=== PATIENT | female | born 1940 | race Caucasian/White ===

== ENCOUNTER → 2016-09-03 | Outpatient (CLI) | payer MEDICARE ==
--- NOTE | 2016-09-03 17:22 | US ---
EXAMINATION TYPE: US thyroid st tissue head/neck DATE OF EXAM: 09/03/2016 4:57 PM COMPARISON: NONE CLINICAL HISTORY: R22.1 SWELLING, MASS AND LUMP NECK. GLAND SIZE: Right Lobe: 3.5 x 1.1 x 1.8 cm Overall Parenchyma: heterogenous Left Lobe: 3.2 x 1.5 x 1.4 cm Overall Parenchyma: heterogeneous Isthmus Thickness: 0.3 cm NODULES RIGHT: # of nodules measured on right: 0 LEFT: # of nodules measured on left: 0 ISTHMUS: # of nodules measured in the isthmus: 0 Bilateral neck scanned, no evidence of lymphadenopathy. Thyroid was scanned as patient's area of concern is just inferior to thyroid where there is a localis ed area of swelling. The order is for lump/ mass on neck. After scanning thyroid, the area of concern mid lower neck, inferior to thyroid was scanned, with no definite abnormality noted. IMPRESSION: Normal thyroid sonogram. We did not demonstrate any sonographic abnormality in the patient's area of concern which was inferior to the thyroid gland.
== END | disposition home or self-care (01) ==
LOC: RADUSWWP 16:37
PROVIDERS: ATTEND Family Medicine
DX: R22.1 Localized swelling, mass and lump, neck (principal)
CPT/HCPCS: 76536

== ENCOUNTER 2017-07-10 12:44 | Inpatient (IN) | payer MEDICARE ==
[2017-07-10 13:16] LABS: Glucose,Whole Blood 168 mg/dL (75-99)
[2017-07-10] MEDS ORDERED: RX INFO: IV CONTRAST WAS GIVEN 1 EACH MISC MISCELLANE PRN (13:34)
[2017-07-10] MEDS ORDERED: SODIUM CHLORIDE 0.9% 1,000 ML IV STA (13:34)
--- NOTE | 2017-07-10 13:38 | ED ---
General Adult HPI - General Chief complaint: Neuro Symptoms/Deficit Stated complaint: Right-sided weakness Time Seen by Provider: 07/10/17 13:15 Source: patient, family, RN notes reviewed Mode of arrival: wheelchair Limitations: no limitations - History of Present Illness Initial comments: Patient is a pleasant 76-year-old female presenting to the emergency department with concerns for right-sided weakness. Onset was around 3:30 this morning when she woke up. Patient had difficulty walking and did lean towards the right side. Patient also noticed weakness of her right arm. Patient does have a history of migraine headaches. Patient did have a moderate headache earlier however is essentially resolved at this point. No confusion. Daughter states she did notice some slurred speech. No visualized facial weakness. Symptoms do seem to have improved since onset. - Related Data Home Medications Medication Instructions Recorded Confirmed Atenolol [Tenormin] 25 mg PO QAM 03/02/14 07/10/17 Hydrochlorothiazide 25 mg PO QAM 03/02/14 07/10/17 Multivitamin/Iron/Folic Acid 1 tab PO BID 03/02/14 07/10/17 [Centrum Complete Multivit Tab] Naproxen 500 mg PO HS 03/02/14 07/10/17 Omeprazole [PriLOSEC] 20 mg PO QAM 03/02/14 07/10/17 glipiZIDE [Glucotrol] 5 mg PO HS 03/02/14 07/10/17 metFORMIN HCL 1,000 mg PO BID 03/02/14 07/10/17 Aspirin 81 mg PO HS 11/14/14 07/10/17 Calcium Carbonate 500 mg PO QAM 07/10/17 07/10/17 Fiberwell 5g 5 g PO QAM 07/10/17 07/10/17 Folic Acid 1 mg PO QAM 07/10/17 07/10/17 Garcinia Cambogia 1 tab PO QAM 07/10/17 07/10/17 L.acidoph,Paracasei, B.lactis 1 cap PO QAM 07/10/17 07/10/17 [Probiotic] Magnesium 200 mg PO HS 07/10/17 07/10/17 Methotrexate Sodium [Methotrexate] 2.5 mg PO HS 07/10/17 07/10/17 Metoprolol Succinate (ER) [Toprol 25 mg PO QAM 07/10/17 07/10/17 Xl] Pravastatin Sodium [Pravachol] 40 mg PO HS 07/10/17 07/10/17 Turmeric Root Extract [Turmeric] 500 mg PO QAM 07/10/17 07/10/17 Vits A,C,E/Lutein/Minerals 1 tab PO HS 07/10/17 07/10/17 [Ocuvite with Lutein Tablet] amLODIPine BES/OLMESARTAN MED 1 tab PO HS 07/10/17 07/10/17 [amLODIPine BES/OLMESARTAN MED 5-40 mg] Allergies Allergy/AdvReac Type Severity Reaction Status Date / Time Sulfa (Sulfonamide Allergy tongue Verified 07/10/17 14:12 Antibiotics) swelling Review of Systems ROS Statement: Those systems with pertinent positive or pertinent negative responses have been documented in the HPI. ROS Other: All systems not noted in ROS Statement are negative. Constitutional: Denies: fever Eyes: Denies: eye pain ENT: Denies: ear pain Respiratory: Denies: cough Cardiovascular: Denies: chest pain Endocrine: Denies: fatigue Gastrointestinal: Denies: abdominal pain Genitourinary: Denies: dysuria Musculoskeletal: Denies: back pain Skin: Denies: rash Neurological: Reports: weakness, abnormal gait. 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, diverticulitis History of Any Multi-Drug Resistant Organisms: None Reported Past Surgical History: Cholecystectomy, Joint Replacement, Tonsillectomy Additional Past Surgical History / Comment(s): breast biopsy rt breast, lt knee replacement Past Anesthesia/Blood Transfusion Reactions: Motion Sickness Past Psychological History: No Psychological Hx Reported Smoking Status: Never smoker Past Alcohol Use History: None Reported Past Drug Use History: None Reported - Past Family History Mother Family Medical History: No Reported History General Exam Limitations: no limitations General appearance: alert, in no apparent distress Head exam: Present: atraumatic Eye exam: Present: normal appearance, PERRL, EOMI. Absent: nystagmus ENT exam: Present: normal oropharynx Neck exam: Present: normal inspection Respiratory exam: Present: normal lung sounds bilaterally Cardiovascular Exam: Present: regular rate, normal rhythm GI/Abdominal exam: Present: soft. Absent: tenderness Extremities exam: Present: normal inspection Neurological exam: Present: alert, oriented X3, CN II-XII intact Expanded Neurological exam: Present: protecting the airway Patient oriented to: Present: person, place, time Speech: Present: fluid speech Cranial nerves: EOM's Intact: Normal, Facial Sensation: Normal Cerebellar function: Finger to Nose: Abnormal Right Sensory exam: Upper Extremity Light Touch: Abnormal Right (Slight decreased sensation on the right), Lower Extremity Light Touch: Normal Motor strength exam: RUE: 4, LUE: 5, RLE: 4, LLE: 5 Eye Response: (4) open spontaneously Motor Response: (6) obeys commands Verbal Response: (5) oriented Psychiatric exam: Present: normal affect, normal mood Skin exam: Present: normal color Course Vital Signs 07/10/17 07/10/17 07/10/17 12:45 14:15 15:28 Temperature 97.8 F 98.9 F Pulse Rate 71 82 60 Respiratory 18 18 20 Rate Blood Pressure 186/76 160/74 166/70 O2 Sat by Pulse 99 98 98 Oximetry EKG Findings - EKG Comments: EKG Findings:: Normal sinus rhythm 63. IL 176. QRS 150. QT 452. QTC 462. Normal axis. Right bundle branch block. No acute ST change. Medical Decision Making - Medical Decision Making Patient reevaluated and is now symptom-free. No weakness on exam of the extremities. Patient and family were updated on results and plan. Case was discussed in detail with Dr. Florence, covering for Dr. kamara, who will admit for Dr. Palma. - Lab Data Result diagrams: 07/10/17 14:00 07/10/17 14:00 Lab Results 07/10/17 07/10/17 07/10/17 Range/Units 13:08 14:00 14:00 WBC 6.0 (3.8-10.6) k/uL RBC 4.14 (3.80-5.40) m/uL Hgb 12.7 (11.4-16.0) gm/dL Hct 39.3 (34.0-46.0) % MCV 94.9 (80.0-100.0) fL MCH 30.6 (25.0-35.0) pg MCHC 32.3 (31.0-37.0) g/dL RDW 13.7 (11.5-15.5) % Plt Count 223 (150-450) k/uL Neutrophils % 65 % Lymphocytes % 24 % Monocytes % 7 % Eosinophils % 2 % Basophils % 1 % Neutrophils # 3.9 (1.3-7.7) k/uL Lymphocytes # 1.4 (1.0-4.8) k/uL Monocytes # 0.4 (0-1.0) k/uL Eosinophils # 0.1 (0-0.7) k/uL Basophils # 0.0 (0-0.2) k/uL PT (9.0-12.0) sec INR (<1.2) APTT (22.0-30.0) sec Sodium (137-145) mmol/L Potassium (3.5-5.1) mmol/L Chloride (98-107) mmol/L Carbon Dioxide (22-30) mmol/L Anion Gap mmol/L BUN (7-17) mg/dL Creatinine (0.52-1.04) mg/dL Est GFR (MDRD) Af Amer (>60 ml/min/1.73 sqM) Est GFR (MDRD) Non-Af (>60 ml/min/1.73 sqM) Glucose (74-99) mg/dL POC Glucose (mg/dL) 168 H (75-99) mg/dL POC Glu Straightening Machine Operator ID Shawn Ventura Calcium (8.4-10.2) mg/dL Total Bilirubin (0.2-1.3) mg/dL AST (14-36) U/L ALT (9-52) U/L Alkaline Phosphatase (38-126) U/L Total Creatine Kinase 38 (30-135) U/L CK-MB (CK-2) 0.5 (0.0-2.4) ng/mL CK-MB (CK-2) Rel Index 1.3 Troponin I <0.012 (0.000-0.034) ng/mL Total Protein (6.3-8.2) g/dL Albumin (3.5-5.0) g/dL 07/10/17 07/10/17 Range/Units 14:00 14:00 WBC (3.8-10.6) k/uL RBC (3.80-5.40) m/uL Hgb (11.4-16.0) gm/dL Hct (34.0-46.0) % MCV (80.0-100.0) fL MCH (25.0-35.0) pg MCHC (31.0-37.0) g/dL RDW (11.5-15.5) % Plt Count (150-450) k/uL Neutrophils % % Lymphocytes % % Monocytes % % Eosinophils % % Basophils % % Neutrophils # (1.3-7.7) k/uL Lymphocytes # (1.0-4.8) k/uL Monocytes # (0-1.0) k/uL Eosinophils # (0-0.7) k/uL Basophils # (0-0.2) k/uL PT 10.1 (9.0-12.0) sec INR 1.0 (<1.2) APTT 22.1 (22.0-30.0) sec Sodium 139 (137-145) mmol/L Potassium 4.3 (3.5-5.1) mmol/L Chloride 98 (98-107) mmol/L Carbon Dioxide 29 (22-30) mmol/L Anion Gap 12 mmol/L BUN 22 H (7-17) mg/dL Creatinine 0.80 (0.52-1.04) mg/dL Est GFR (MDRD) Af Amer >60 (>60 ml/min/1.73 sqM) Est GFR (MDRD) Non-Af >60 (>60 ml/min/1.73 sqM) Glucose 154 H (74-99) mg/dL POC Glucose (mg/dL) (75-99) mg/dL POC Glu Straightening Machine Operator ID Calcium 10.0 (8.4-10.2) mg/dL Total Bilirubin 0.4 (0.2-1.3) mg/dL AST 20 (14-36) U/L ALT 18 (9-52) U/L Alkaline Phosphatase 90 (38-126) U/L Total Creatine Kinase (30-135) U/L CK-MB (CK-2) (0.0-2.4) ng/mL CK-MB (CK-2) Rel Index Troponin I (0.000-0.034) ng/mL Total Protein 7.0 (6.3-8.2) g/dL Albumin 4.1 (3.5-5.0) g/dL - Radiology Data Radiology results: report reviewed (Computed tomography scan of the brain reveals no acute abnormality. Chronic small vessel ischemia. CT angios without acute process. Age-related changes.), image reviewed (Two-view chest x- ray shows no acute cardiopulmonary process.) Disposition Clinical Impression: Transient cerebral ischemia Disposition: ADMITTED IP TO THIS HOSP Referrals: Kostas Kim MD [Primary Care Provider] - 1-2 days Decision Time: 16:13
[2017-07-10 14:22] LABS: Basophils % (A) 1 %; Eosinophils # (A) 0.1 k/uL (0-0.7); Eosinophils % (A) 2 %; HCT 39.3 % (34.0-46.0); HGB 12.7 gm/dL (11.4-16.0); Lymphocytes # (A) 1.4 k/uL (1.0-4.8); Lymphocytes % (A) 24 %; MCH 30.6 pg (25.0-35.0); MCHC 32.3 g/dL (31.0-37.0); MCV 94.9 fL (80.0-100.0); Mean Platelet Volume 6.9; Monocytes # (A) 0.4 k/uL (0-1.0); Monocytes % (A) 7 %; Neutrophils # (A) 3.9 k/uL (1.3-7.7); Neutrophils % (A) 65 %; Platelet Count 223 k/uL (150-450); RBC 4.14 m/uL (3.80-5.40); RDW 13.7 % (11.5-15.5)
--- NOTE | 2017-07-10 14:24 | XR ---
EXAMINATION TYPE: XR chest 2V DATE OF EXAM: 07/10/2017 COMPARISON: Prior chest x-ray 06/12/2009 HISTORY: Altered mental status TECHNIQUE: Frontal and lateral views of the chest are obtained. FINDINGS: Patient is rotated. No evident airspace disease, pneumothorax, or pleural effusion. Cardia c mediastinal silhouette, pulmonary vascularity and saundra within normal limits accounting for patient' s rotation, technique. Spondylosis noted in the thoracic spine. There may be spinal curvature. Surgic al clips present in the right upper quadrant. IMPRESSION: No acute cardiopulmonary process.
[2017-07-10 14:32] LABS: Partial Thromboplastin Time 22.1 sec (22.0-30.0); Prothrombin Time 10.1 sec (9.0-12.0)
[2017-07-10 14:41] LABS: ALT 18 U/L (9-52); AST 20 U/L (14-36); Albumin 4.1 g/dL (3.5-5.0); Alkaline Phosphatase 90 U/L (38-126); Anion Gap 12 mmol/L; Blood Urea Nitrogen 22 mg/dL (7-17); Carbon Dioxide 29 mmol/L (22-30); Chloride 98 mmol/L (98-107); Glucose 154 mg/dL (74-99); Potassium 4.3 mmol/L (3.5-5.1); Sodium 139 mmol/L (137-145); Total Bilirubin 0.4 mg/dL (0.2-1.3)
[2017-07-10 14:47] LABS: Creatine Kinase 38 U/L (30-135)
[2017-07-10 14:59] LABS: Creatine Kinase MB 0.5 ng/mL (0.0-2.4); Troponin I <0.012 ng/mL (0.000-0.034)
--- NOTE | 2017-07-10 15:39 | CT ---
EXAMINATION TYPE: CT brain wo con DATE OF EXAM: 07/10/2017 COMPARISON: CT brain 03/02/2014 HISTORY: Lips tingling and weakness. CT DLP: 1036 mGycm Automated exposure control for dose reduction was used. Helical acquisition obtained through the [employer]. FINDINGS: There is no interval change. Cerebral vascular calcifications are present. There is no hemorrhage or hydrocephalus. Periventricular white matter shows patchy low attenuation. Probable small lacunar infa rct present in the thalamus on the left, basal ganglia on the right. Calvarium is intact. Paranasal s inuses and mastoid air cells as visualized are normal. IMPRESSION: CHRONIC SMALL VESSEL ISCHEMIA, AGE RELATED ATROPHY.
--- NOTE | 2017-07-10 15:44 | CT ---
EXAMINATION TYPE: CT angio head neck DATE OF EXAM: 07/10/2017 HISTORY: Lips tingling and weakness. COMPARISON: CT brain same date CT DLP: 336.8 mGycm. Automated Exposure Control for Dose Reduction was Utilized. TECHNIQUE: CTA scan of the neck is performed with IV Contrast, patient injected with 65 mL of Omnipa que 350, axial images are obtained, coronal and sagittal reformatted images are reviewed. Three-D rec onstructed images are created on an independent workstation and reviewed. FINDINGS: Carotid/Vascular Structures: The transverse aorta, left and right subclavian, innominate, left and ri ght common carotid, left and right vertebral arteries, left and right internal and external carotid a rteries are patent. Right vertebral artery is dominant. There is no filling defect evident within the internal carotid arteries to suggest embolism or dissection. Anterior and posterior circulation lopez nt within the brain. No evident aneurysm or vascular malformation. Cerebral vascular calcifications a re present. Other: Dental amalgam causes some streak artifact over portions of the exam. No evident adenopathy. A irway is patent. Upper lungs are normal. No filling defect evident in the visualized pulmonary arteri es. IMPRESSION: Age-related changes.
[2017-07-10] MEDS ORDERED: ASPIRIN 325 MG TAB PO STA (16:13)
--- NOTE | 2017-07-10 18:38 | P.HPIM ---
History of Present Illness 76-year-old female presenting to the emergency department with concerns for right-sided weakness. Onset was around 3:30 this morning when she woke up. Patient had difficulty walking and did lean towards the right side. Patient also noticed weakness of her right arm. Patient does have a history of migraine headaches. Patient did have a moderate headache earlier however is essentially resolved at this point. No confusion. Daughter states she did notice some slurred speech. No visualized facial weakness. Symptoms do seem to have improved since onset. Patient went back to sleep with these symptoms and the woke up at 8 AM with improved symptoms patient's symptoms completely resolved at this point of time in ER patient did have a drift on the right side. Patient had slurred speech as well which also resolved at this point of time patient does not have any facial droop. Patient does have history of migraine but never had any symptoms of weakness with migraine. Patient does have some sensory sensory symptoms and visual changes with migraine ration them only uses hair nonsteroidal anti-inflammatory medications for migraine. Patient does have history of hypertension and diabetes mellitus. Patient was being treated with methotrexate for some autoimmune skin disease. 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 Review of Systems REVIEW OF SYSTEMS: CONSTITUTIONAL: No fever, no malaise, no fatigue. HEENT: No recent visual problems or hearing problems. Denied any sore throat. CARDIOVASCULAR: No chest pain, orthopnea, PND, no palpitations, no syncope. PULMONARY: No shortness of breath, no cough, no hemoptysis. GASTROINTESTINAL: No diarrhea, no nausea, no vomiting, no abdominal pain. Normoactive bowel sounds. NEUROLOGICAL: As mentioned in HPI HEMATOLOGICAL: Denies any bleeding or petechiae. GENITOURINARY: Denies any burning micturition, frequency, or urgency. MUSCULOSKELETAL/RHEUMATOLOGICAL: Denies any joint pain, swelling, or any muscle pain. ENDOCRINE: Denies any polyuria or polydipsia. The rest of the 14-point review of systems is negative. 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, diverticulitis History of Any Multi-Drug Resistant Organisms: None Reported Past Surgical History: Cholecystectomy, Joint Replacement, Tonsillectomy Additional Past Surgical History / Comment(s): breast biopsy rt breast, lt knee replacement Past Anesthesia/Blood Transfusion Reactions: Motion Sickness Past Psychological History: No Psychological Hx Reported Smoking Status: Never smoker Past Alcohol Use History: None Reported Past Drug Use History: None Reported - Past Family History Mother Family Medical History: No Reported History Medications and Allergies Home Medications Medication Instructions Recorded Confirmed Type Atenolol [Tenormin] 25 mg PO QAM 03/02/14 07/10/17 History Hydrochlorothiazide 25 mg PO QAM 03/02/14 07/10/17 History Multivitamin/Iron/Folic Acid 1 tab PO BID 03/02/14 07/10/17 History [Centrum Complete Multivit Tab] Naproxen 500 mg PO HS 03/02/14 07/10/17 History Omeprazole [PriLOSEC] 20 mg PO QAM 03/02/14 07/10/17 History glipiZIDE [Glucotrol] 5 mg PO HS 03/02/14 07/10/17 History metFORMIN HCL 1,000 mg PO BID 03/02/14 07/10/17 History Aspirin 81 mg PO HS 11/14/14 07/10/17 History Calcium Carbonate 500 mg PO QAM 07/10/17 07/10/17 History Fiberwell 5g 5 g PO QAM 07/10/17 07/10/17 History Folic Acid 1 mg PO QAM 07/10/17 07/10/17 History Garcinia Cambogia 1 tab PO QAM 07/10/17 07/10/17 History L.acidoph,Paracasei, B.lactis 1 cap PO QAM 07/10/17 07/10/17 History [Probiotic] Magnesium 200 mg PO HS 07/10/17 07/10/17 History Methotrexate Sodium [Methotrexate] 2.5 mg PO HS 07/10/17 07/10/17 History Metoprolol Succinate (ER) [Toprol 25 mg PO QAM 07/10/17 07/10/17 History Xl] Pravastatin Sodium [Pravachol] 40 mg PO HS 07/10/17 07/10/17 History Turmeric Root Extract [Turmeric] 500 mg PO QAM 07/10/17 07/10/17 History Vits A,C,E/Lutein/Minerals 1 tab PO HS 07/10/17 07/10/17 History [Ocuvite with Lutein Tablet] amLODIPine BES/OLMESARTAN MED 1 tab PO HS 07/10/17 07/10/17 History [amLODIPine BES/OLMESARTAN MED 5-40 mg] Allergies Allergy/AdvReac Type Severity Reaction Status Date / Time Sulfa (Sulfonamide Allergy tongue Verified 07/10/17 14:12 Antibiotics) swelling Physical Exam Vitals: Vital Signs Temp Pulse Pulse Resp BP Pulse Ox 07/10/17 17:18 97.6 F 62 18 176/69 99 07/10/17 16:26 65 18 07/10/17 16:23 96.7 F L 64 20 156/67 98 07/10/17 15:28 98.9 F 60 20 166/70 98 07/10/17 14:15 82 18 160/74 98 07/10/17 12:45 97.8 F 71 18 186/76 99 Intake and Output 07/10/17 07/10/17 07/10/17 06:59 14:59 22:59 Other: Weight 72.121 kg Patient Weight 07/11/17 06:59 Weight 72.121 kg PHYSICAL EXAMINATION: GENERAL: The patient is alert and oriented x3, not in any acute distress. Well developed, well nourished. HEENT: Pupils are round and equally reacting to light. EOMI. No scleral icterus. No conjunctival pallor. Normocephalic, atraumatic. No pharyngeal erythema. No thyromegaly. CARDIOVASCULAR: S1 and S2 present. No murmurs, rubs, or gallops. PULMONARY: Chest is clear to auscultation, no wheezing or crackles. ABDOMEN: Soft, nontender, nondistended, normoactive bowel sounds. No palpable organomegaly. MUSCULOSKELETAL: No joint swelling or deformity. EXTREMITIES: No cyanosis, clubbing, or pedal edema. NEUROLOGICAL: Gross neurological examination did not reveal any focal deficits. SKIN: No rashes. Results CBC & Chem 7: 07/10/17 14:00 07/10/17 14:00 Labs: Abnormal Lab Results - Last 24 Hours (Table) 07/10/17 07/10/17 Range/Units 13:08 14:00 BUN 22 H (7-17) mg/dL Glucose 154 H (74-99) mg/dL POC Glucose (mg/dL) 168 H (75-99) mg/dL Assessment and Plan Plan: 1 possible TIA involving the right side of the body and left cerebral hemisphere : Patient does have speech abnormalities as well. Neurology was consulted patient is already in antiplatelet therapy and a statin. Echocardiac B obtain CT angios the set had and the CT of the head were essentially within normal limits. -Type 2 diabetes mellitus: Patient will be on sliding scale insulin along with her home regimen. -History of migraine patient does not have any history of migraine with paralysis. This does not appear to be migraine. -Possibility of some autoimmune disease possibly vasculitis: Patient is on methotrexate which will be continued patient need to be worked up for C&S vascular this as well which can be done as an outpatient. -Hypertension: Continue all her home antidepressive medications and allow some elevated blood pressure as a permissive hypertension for TIA at a stroke. A she is on couple beta blockers one of which will be held patient is mildly sinus bradycardic. -Hyperlipidemia: Statin will be continued.
[2017-07-10 20:53] VITALS: BMI 29.0
[2017-07-10] MEDS ORDERED: PRAVASTATIN SODIUM 40 MG TAB PO SCH (21:00)
[2017-07-10 21:15] LABS: Glucose,Whole Blood 218 mg/dL (75-99)
[2017-07-10] MEDS: NAPROXEN 250 MG TAB PO SCH (21:16)
[2017-07-10] MEDS: LOSARTAN 50 MG TAB PO SCH (21:17)
[2017-07-10] MEDS: MAGNESIUM OXIDE 400 MG TAB PO SCH (21:17)
[2017-07-10] MEDS: amLODIPine 5 MG TAB PO SCH (21:17)
[2017-07-10] MEDS: VIT A,C & E-LUTEIN-MINERALS 1 EACH TAB PO SCH (21:17)
[2017-07-10] MEDS: METHOTREXATE SODIUM 2.5 MG TAB PO SCH (21:18)
[2017-07-10] MEDS: SODIUM CHLORIDE 0.9% 1,000 ML IV SCH (21:18)
[2017-07-11 06:25] LABS: Magnesium 1.8 mg/dL (1.6-2.3)
[2017-07-11 06:29] LABS: Glucose,Whole Blood 154 mg/dL (75-99)
[2017-07-11] MEDS: PANTOPRAZOLE 40 MG TABLET PO SCH (06:40)
[2017-07-11] MEDS: INSULIN ASPART 100 UNIT/ML 1 ML 10 ML VIAL SQ SCH ×4 (06:50→20:50)
[2017-07-11] MEDS ORDERED: RX INFO: IV CONTRAST WAS GIVEN 1 EACH MISC MISCELLANE PRN ×2 (06:54→07:01)
[2017-07-11 07:06] LABS: Glucose,Whole Blood 144 mg/dL (75-99)
--- NOTE | 2017-07-11 07:33 | CT ---
EXAMINATION TYPE: CT brain wo con DATE OF EXAM: 07/11/2017 COMPARISON: Previous study dated 07/10/2017. HISTORY: Code stroke CT DLP: 1121 mGycm Automated exposure control for dose reduction was used. FINDINGS: There are generalized changes of sulcal prominence and ventriculomegaly, compatible with atrophic billy nge. There is evidence of a small lacune in the external capsule on the right. There is no acute foca l lesion, mass effect or midline shift. I do not see evidence of intracranial blood. There is no evid ence of hydrocephalus. Visualized portions of the paranasal sinuses and mastoids are clear. The bony calvarium is intact. IMPRESSION: 1. NO ACUTE INTRACRANIAL ABNORMALITY. 2. SMALL LACUNA IN THE RIGHT EXTERNAL CAPSULE. 3. MILD ATROPHIC CHANGE.
--- NOTE | 2017-07-11 08:05 | CT ---
EXAMINATION TYPE: CT angio head neck DATE OF EXAM: 07/11/2017 HISTORY: Stroke. COMPARISON: Previous study from yesterday CT DLP: 340 mGycm. Automated Exposure Control for Dose Reduction was Utilized. TECHNIQUE: CTA scan of the neck is performed with IV Contrast, patient injected with 65 mL of Omnipa que 350, axial images are obtained, coronal and sagittal reformatted images are reviewed. Three-D rec onstructed images are created on an independent workstation and reviewed. FINDINGS: There is mild groundglass opacity throughout the visualized lung [place]. This may be second mohamud to alveolitis, pneumonitis or pulmonary edema. Major salivary glands are normal. The parapharyngeal, oropharyngeal and laryngeal soft tissues are normal. Vertebral body height and alignment remain normal. Prevertebral soft tissues are normal. There is a r eversal of the normal cervical lordosis. There is degenerative disc disease and hypertrophic spondylo sis at virtually all levels. There is relative sparing of the C2-3 articulation. No fractures are see n. There is a normal origin of the great vessels. The right vertebral artery is dominant. There is minimal atheromatous calcification in both carotid bulbs. There is no significant carotid st enosis bilaterally. Both internal carotid arteries are tortuous and extend into the retropharyngeal s pace bilaterally. The [place] has a normal appearance. There is normal arborization of the middle cerebral art eries bilaterally. Both anterior cerebral arteries are patent. No occlusion or filling defect is seen . There is no sizable aneurysm. IMPRESSION: 1. NO SIGNIFICANT CAROTID STENOSIS. 2. NORMAL CT OF THE [place] OF [place]. 3. GROUNDGLASS OPACITY WITHIN THE LUNGS MAY REPRESENT ALVEOLITIS, PNEUMONITIS OR PULMONARY EDEMA. PLE ASE CORRELATE CLINICALLY.
[2017-07-11] MEDS: SODIUM CHLORIDE 0.9% 1,000 ML IV SCH ×2 (08:15→11:32)
[2017-07-11] MEDS: HYDROCHLOROTHIAZIDE 25 MG TAB PO SCH (08:17)
[2017-07-11] MEDS: METOPROLOL SUCCINATE (ER) 25 MG TAB.ER.24H PO SCH (08:17)
[2017-07-11] MEDS: ATORVASTATIN 80 MG TAB PO SCH (08:17)
[2017-07-11] MEDS ORDERED: ASPIRIN 325 MG TAB PO SCH (09:00)
--- NOTE | 2017-07-11 10:16 | P.PN ---
Subjective 76-year-old female admitted for TIA patient had another episode of stroke today patient has weakness on the right side. CAT scan is read as right internal capsule lacunar stroke but patient will need an MRI patient was evaluated by stroke network not a candidate for TPA. Lipitor dose was increased and neurology will valid the patient today. Patient still has residual weakness with the about 3/5 strength in right upper limb and 4/5 strength in right lower limb. Constitutional: Denied any fatigue denied any fever. Cardio vascular: denied any chest pain, palpitations Gastrointestinal denied any nausea vomiting Pulmonary: Denied any shortness of breath cough Neurologic as mentioned above Objective - Vital Signs Vital signs: Vital Signs Temp 97.7 F 07/11/17 08:00 Pulse 58 L 07/11/17 08:00 Resp 16 07/11/17 08:00 BP 148/68 07/11/17 08:00 Pulse Ox 96 07/11/17 08:00 Intake & Output 07/10/17 07/11/17 07/11/17 18:59 06:59 18:59 Intake Total 240 400 240 Balance 240 400 240 Weight 72.121 kg 73.8 kg Intake: Intake, IV Titration 400 Amount Sodium Chloride 0.9% 1, 400 000 ml @ 100 mls/hr IV . Q10H PAUL Rx#:[id number] Oral 240 240 Other: # Voids 1 - Exam PHYSICAL EXAMINATION: GENERAL: The patient is alert and oriented x3, not in any acute distress. Well developed, well nourished. HEENT: Pupils are round and equally reacting to light. EOMI. No scleral icterus. No conjunctival pallor. Normocephalic, atraumatic. No pharyngeal erythema. No thyromegaly. CARDIOVASCULAR: S1 and S2 present. No murmurs, rubs, or gallops. PULMONARY: Chest is clear to auscultation, no wheezing or crackles. ABDOMEN: Soft, nontender, nondistended, normoactive bowel sounds. No palpable organomegaly. MUSCULOSKELETAL: No joint swelling or deformity. EXTREMITIES: No cyanosis, clubbing, or pedal edema. NEUROLOGICAL: Weakness on the right side of the body as mentioned in the interval history. SKIN: No rashes. - Labs CBC & Chem 7: 07/10/17 14:00 07/10/17 14:00 Labs: Abnormal Lab Results - Last 24 Hours (Table) 07/10/17 07/10/17 07/10/17 Range/Units 13:08 14:00 21:13 BUN 22 H (7-17) mg/dL Glucose 154 H (74-99) mg/dL POC Glucose (mg/dL) 168 H 218 H (75-99) mg/dL LDL Cholesterol, Calc (0-99) mg/dL 07/11/17 07/11/17 07/11/17 Range/Units 05:17 06:15 06:56 BUN (7-17) mg/dL Glucose (74-99) mg/dL POC Glucose (mg/dL) 154 H 144 H (75-99) mg/dL LDL Cholesterol, Calc 110 H (0-99) mg/dL Assessment and Plan Plan: 1 possible TIA involving the right side of the body and left cerebral hemisphere , left internal 0: Patient does have speech abnormalities as well. Neurology was consulted patient is already in antiplatelet therapy and a statin. Echocardiac be obtain CT angios the set had and the CT of the head were essentially within normal limits. Wheezing the dose of her statin -Type 2 diabetes mellitus: Patient will be on sliding scale insulin along with her home regimen. -History of migraine patient does not have any history of migraine with paralysis. This does not appear to be migraine. -Possibility of some autoimmune disease possibly vasculitis: Patient is on methotrexate which will be continued patient need to be worked up for C&S vascular this as well which can be done as an outpatient. -Hypertension: Continue all her home antidepressive medications and allow some elevated blood pressure as a permissive hypertension for TIA at a stroke. Her sinus bradycardia improved -Hyperlipidemia: Statin will be continued.
[2017-07-11] MEDS: FOLIC ACID 1 MG TAB PO SCH (11:32)
[2017-07-11 12:00] LABS: Glucose,Whole Blood 228 mg/dL (75-99)
[2017-07-11] MEDS: CLOPIDOGREL 75 MG TAB PO SCH (12:22)
--- NOTE | 2017-07-11 14:06 | MR ---
EXAMINATION TYPE: MR brain wo con DATE OF EXAM: 07/11/2017 COMPARISON: CT brain earlier today and older study yesterday and older exam March 02, 2014. HISTORY: New onset neuro deficits yesterday with lips tingling and weakness. TECHNIQUE: Multiplanar, multisequence imaging of the brain and brainstem is performed without IV cont rast. FINDINGS: Diffusion weighted images demonstrate no evidence of a recent infarct or other diffusion abnormality. There is no worrisome extra-axial fluid collection. There is ventricular and sulcal prominence consis tent with mild age-related cerebral atrophy. There are multifocal areas of T2 hyperintensity seen thr oughout the superficial, deep, and the periventricular white matter. Lesions are nonspecific in appea ming and distribution are most likely on basis of product of proximal vessel ischemic change. Old la cunar infarct right larose radiata and right posterior inferior basal ganglia are redemonstrated on a xial images 20 and 17 respectively. Old lacunar infarct lateral left thalamus axial image 16 is redem onstrated. All these findings were present back in 2014 CT. Midline structures demonstrate normal morphology. The craniocervical junction appears within normal limits. Normal vascular flow voids are present. The visualized sinuses are clear and the globes are i ntact. IMPRESSION: 1. No evidence of a recent infarct. 2. There is mild diffuse cerebral atrophy and moderate to severe chronic small vessel ischemic change s with old lacunar infarcts all redemonstrated.
[2017-07-11 17:37] LABS: Glucose,Whole Blood 157 mg/dL (75-99)
--- NOTE | 2017-07-11 19:39 | P.CNNES ---
History of Present Illness Consult date: 07/11/17 Requesting physician: Arnold Montes Reason for Consult: TIA History of Present Illness: Patient is a pleasant 76-year-old female who is being evaluated by the neurology service on 07/11/2017 per the request of Dr. Montes patient states that she went to bed last night as usual. Patient denies any symptoms at bedtime. She states she woke up approximately 3:30 in the morning and noticed right-sided weakness. Patient does have history of migraine headaches and she attributed it to that. Patient did have moderate headache at that time. Daughter states she spoke to her mother in the morning and noticed slurred speech. Patient was brought to [facility] for further evaluation. Patient arrived at [facility] in symptoms seem to have improved. Patient right-sided weakness and slurred speech continue to improve in the ER and patient was sent to regular medical floor. Patient did not have facial droop. CT of the brain and CTA were negative for any acute process. Brain CT does show old lacunar infarcts that are stable as compared to 2014. During the night last night patient's symptoms of right-sided weakness worsened. Stat CT and CTA were repeated without any new findings. A brain MRI was obtained which showed no evidence of a recent infarct. MRI shows mild diffuse cerebral atrophy and severe chronic small vessel ischemic changes with old lacunar infarcts all redemonstrated. Patient was on aspirin 81 mg in the home setting. Labs on admission showed CBC with differential was normal. BUN 22 with creatinine 0.80. Lipid panel showed elevated LDL of 110. At the time of my evaluation, patient is resting comfortably in bed and appears to be in no acute distress. Family is at the bedside. Review of Systems REVIEW OF SYSTEMS: Otherwise unremarkable and noncontributory. 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, diverticulitis History of Any Multi-Drug Resistant Organisms: None Reported Past Surgical History: Cholecystectomy, Joint Replacement, Tonsillectomy Additional Past Surgical History / Comment(s): breast biopsy rt breast, lt knee replacement Past Anesthesia/Blood Transfusion Reactions: Motion Sickness Past Psychological History: No Psychological Hx Reported Smoking Status: Never smoker Past Alcohol Use History: Rare Additional Past Alcohol Use History / Comment(s): glass of wine once in awhile Past Drug Use History: None Reported - Past Family History Mother Family Medical History: No Reported History Medications and Allergies Home Medications Medication Instructions Recorded Confirmed Type Atenolol [Tenormin] 25 mg PO QAM 03/02/14 07/10/17 History Hydrochlorothiazide 25 mg PO QAM 03/02/14 07/10/17 History Multivitamin/Iron/Folic Acid 1 tab PO BID 03/02/14 07/10/17 History [Centrum Complete Multivit Tab] Naproxen 500 mg PO HS 03/02/14 07/10/17 History Omeprazole [PriLOSEC] 20 mg PO QAM 03/02/14 07/10/17 History glipiZIDE [Glucotrol] 5 mg PO HS 03/02/14 07/10/17 History metFORMIN HCL 1,000 mg PO BID 03/02/14 07/10/17 History Aspirin 81 mg PO HS 11/14/14 07/10/17 History Calcium Carbonate 500 mg PO QAM 07/10/17 07/10/17 History Fiberwell 5g 5 g PO QAM 07/10/17 07/10/17 History Folic Acid 1 mg PO QAM 07/10/17 07/10/17 History Garcinia Cambogia 1 tab PO QAM 07/10/17 07/10/17 History L.acidoph,Paracasei, B.lactis 1 cap PO QAM 07/10/17 07/10/17 History [Probiotic] Magnesium 200 mg PO HS 07/10/17 07/10/17 History Methotrexate Sodium [Methotrexate] 2.5 mg PO HS 07/10/17 07/10/17 History Metoprolol Succinate (ER) [Toprol 25 mg PO QAM 07/10/17 07/10/17 History Xl] Pravastatin Sodium [Pravachol] 40 mg PO HS 07/10/17 07/10/17 History Turmeric Root Extract [Turmeric] 500 mg PO QAM 07/10/17 07/10/17 History Vits A,C,E/Lutein/Minerals 1 tab PO HS 07/10/17 07/10/17 History [Ocuvite with Lutein Tablet] amLODIPine BES/OLMESARTAN MED 1 tab PO HS 07/10/17 07/10/17 History [amLODIPine BES/OLMESARTAN MED 5-40 mg] Allergies Allergy/AdvReac Type Severity Reaction Status Date / Time Sulfa (Sulfonamide Allergy tongue Verified 07/10/17 14:12 Antibiotics) swelling Physical Examination - Vital Signs Vital Signs: Vital Signs Temp Pulse Resp BP Pulse Ox 07/11/17 16:00 97.5 F L 58 L 16 152/78 95 07/11/17 12:00 97.6 F 68 16 174/72 94 L 07/11/17 08:00 97.7 F 58 L 16 148/68 96 07/11/17 03:30 97.1 F L 56 L 16 157/72 97 07/11/17 00:00 56 L 16 138/66 97 07/10/17 20:00 97.5 F L 62 18 115/69 95 Intake and Output 07/11/17 07/11/17 07/11/17 06:59 14:59 22:59 Intake Total 400 640 Balance 400 640 Intake: Intake, IV Titration 400 400 Amount Sodium Chloride 0.9% 1, 400 400 000 ml @ 100 mls/hr IV . Q10H PAUL Rx#:[id number] Oral 240 Other: # Voids 1 1 Weight 73.8 kg PHYSICAL EXAM: GENERAL APPEARANCE: Patient is a well-developed, female who appears to be in no acute distress. HEENT: Normocephalic, atraumatic, no facial asymmetry is seen. Neck is supple with no masses felt. CARDIOVASCULAR: Regular rate and rhythm. ABDOMEN: Nontender, nondistended. EXTREMITIES: Show no edema or clubbing. NEUROLOGICAL EXAM: Patient is awake, alert, and oriented 3. Speech and language are normal. Strength is full in left upper and lower extremity. Strength is 4/5 in right upper extremity and 4+/5 in right lower extremity. Sensory exam is normal to light touch in all 4 extremities. No facial asymmetry is seen on cranial nerve testing. No tremors or seizure-like activity noted. Results - Laboratory Findings CBC and BMP: 07/10/17 14:00 07/10/17 14:00 Abnormal Lab Findings: Abnormal Labs 07/10/17 07/10/17 07/10/17 13:08 14:00 21:13 BUN 22 H Glucose 154 H POC Glucose (mg/dL) 168 H 218 H LDL Cholesterol, Calc 07/11/17 07/11/1707/11/18 05:17 06:15 06:56 BUN Glucose POC Glucose (mg/dL) 154 H 144 H LDL Cholesterol, Calc 110 H 07/11/17 07/11/17 11:55 17:06 BUN Glucose POC Glucose (mg/dL) 228 H 157 H LDL Cholesterol, Calc Assessment and Plan Plan: Impression: 1. TIA/CVA 2. Right hemiparesis 3. Slurred speech 4. Migraine 5. Hypertension 6. Diabetes mellitus Recommendation: Patient appears to have had a TIA with transient right sided hemiparesis and slurred speech. This had cleared up for a time in the ER but had worsened again throughout the night. Repeat computed tomography scan did show probable small lacunar infarct present in the thalamus on the left, basal ganglia on the right. Follow-up computed tomography scan showed possible infarct right internal capsule. MRI did not show evidence of this. MRI showed evidence of old left thalamic infarct. Due to ongoing and worsening symptoms, MRI may need to be repeated. We'll follow patient closely. I will switch aspirin to Plavix 75 mg by mouth daily. I will order carotid Dopplers, EEG, and serum homocysteine level. I recommend PT OT to evaluate and treat. I will continue to follow with you. Further recommendations to follow. Thank you for allowing me to participate in the care of your patient. Feel free to call with any questions or concerns. I performed an examination of the patient and discussed the management with the BLAST FURNACE CHECKER. I have reviewed the BLAST FURNACE CHECKER notes and agree with the findings and plan of care.
[2017-07-11 20:42] LABS: Glucose,Whole Blood 179 mg/dL (75-99)
[2017-07-11] MEDS: NAPROXEN 250 MG TAB PO SCH (20:50)
[2017-07-11] MEDS: amLODIPine 5 MG TAB PO SCH (20:51)
[2017-07-11] MEDS: METHOTREXATE SODIUM 2.5 MG TAB PO SCH (20:51)
[2017-07-11] MEDS: VIT A,C & E-LUTEIN-MINERALS 1 EACH TAB PO SCH (20:51)
[2017-07-11] MEDS: MAGNESIUM OXIDE 400 MG TAB PO SCH (20:51)
[2017-07-11] MEDS: LOSARTAN 50 MG TAB PO SCH (20:51)
[2017-07-12 06:11] LABS: Glucose,Whole Blood 158 mg/dL (75-99)
[2017-07-12] MEDS: PANTOPRAZOLE 40 MG TABLET PO SCH (06:42)
[2017-07-12] MEDS: SODIUM CHLORIDE 0.9% 1,000 ML IV SCH ×2 (06:43→08:22)
[2017-07-12] MEDS: INSULIN ASPART 100 UNIT/ML 1 ML 10 ML VIAL SQ SCH ×4 (06:48→21:48)
[2017-07-12] MEDS: HYDROCHLOROTHIAZIDE 25 MG TAB PO SCH (08:22)
[2017-07-12] MEDS: CLOPIDOGREL 75 MG TAB PO SCH (08:22)
[2017-07-12] MEDS: METOPROLOL SUCCINATE (ER) 25 MG TAB.ER.24H PO SCH (08:22)
[2017-07-12] MEDS: ATORVASTATIN 80 MG TAB PO SCH (08:22)
[2017-07-12 12:02] LABS: Glucose,Whole Blood 210 mg/dL (75-99)
[2017-07-12] MEDS: FOLIC ACID 1 MG TAB PO SCH (12:34)
--- NOTE | 2017-07-12 15:16 | P.PN ---
Subjective Progress Note Date: 07/12/17 Principal diagnosis: Patient is a pleasant 76-year-old female who is being followed by the neurology service for right-sided weakness. Patient came to [facility] after waking up in the middle the night and noticing right-sided weakness. Patient spoke with her daughter in the morning and daughter had noticed slurred speech. Patient symptoms were improved by the time she reached the hospital. Patient had return of symptoms that night and MRI was obtained. MRI did not show any recent infarct. Right-sided weakness is improving. Speech is normal. Patient denies headache or dysphagia. At the time of my evaluation, patient is resting comfortably in bed and appears to be in no acute distress. Objective - Vital Signs Vital signs: Vital Signs Temp 98.0 F 07/12/17 12:00 Pulse 66 07/12/17 12:00 Resp 16 07/12/17 12:00 BP 186/88 07/12/17 12:00 Pulse Ox 98 07/12/17 12:00 Intake & Output 07/11/17 07/12/17 07/12/17 18:59 06:59 18:59 Intake Total 914 620 9013 Output Total 200 Balance 640 100 920 Weight 72.7 kg Intake: Intake, IV Titration 400 100 400 Amount Sodium Chloride 0.9% 1, 400 100 400 000 ml @ 100 mls/hr IV . Q10H PAUL Rx#:[id number] Oral 240 720 Output: Urine 200 Other: # Voids 1 1 - Exam PHYSICAL EXAM: GENERAL APPEARANCE: Patient is a well-developed, female who appears to be in no acute distress. HEENT: Normocephalic, atraumatic, no facial asymmetry is seen. Neck is supple with no masses felt. CARDIOVASCULAR: Regular rate and rhythm. ABDOMEN: Nontender, nondistended. EXTREMITIES: Show no edema or clubbing. NEUROLOGICAL EXAM: Patient is awake, alert, and oriented 3. Speech and language are normal. Strength is full to left upper and lower extremity. Strength is 4-/5 in the right upper extremity and 4/5 in the right lower extremity. Sensory exam is normal to light touch in all 4 extremities. No facial asymmetry is seen on cranial nerve testing. No tremors or seizure-like activity noted. - Labs CBC & Chem 7: 07/10/17 14:00 07/10/17 14:00 Labs: Abnormal Lab Results - Last 24 Hours (Table) 07/11/17 07/11/17 07/12/17 Range/Units 17:06 20:39 06:10 POC Glucose (mg/dL) 157 H 179 H 158 H (75-99) mg/dL 07/12/17 Range/Units 11:55 POC Glucose (mg/dL) 210 H (75-99) mg/dL Assessment and Plan Plan: Impression: 1. TIA/CVA 2. Right hemiparesis 3. Slurred speech, resolved 4. Migraine 5. Hypertension 6. Diabetes mellitus Recommendation: Patient right-sided weakness is improving. Patient is working with physical therapy. Continue Plavix 75 mg by mouth daily and statin. CTA showed no significant carotid stenosis bilaterally. MRI showed no recent infarct. EEG to be done in the a.m. Her serum homocysteine level is pending. I recommend continue PT OT. I recommend inpatient rehab following discharge. I will continue to follow with you. Further recommendations to follow. I performed an examination of the patient and discussed the management with the DATA SYSTEMS MANAGER. I have reviewed the DATA SYSTEMS MANAGER notes and agree with the findings and plan of care.
[2017-07-12 16:45] LABS: Glucose,Whole Blood 224 mg/dL (75-99)
[2017-07-12 21:20] LABS: Glucose,Whole Blood 178 mg/dL (75-99)
[2017-07-12] MEDS: LOSARTAN 50 MG TAB PO SCH (21:38)
[2017-07-12] MEDS: METHOTREXATE SODIUM 2.5 MG TAB PO SCH (21:39)
[2017-07-12] MEDS: MAGNESIUM OXIDE 400 MG TAB PO SCH (21:39)
[2017-07-12] MEDS: VIT A,C & E-LUTEIN-MINERALS 1 EACH TAB PO SCH (21:40)
[2017-07-12] MEDS: NAPROXEN 250 MG TAB PO SCH (21:40)
--- NOTE | 2017-07-12 21:46 | P.PN ---
Progress Note - Text Progress Note Date: 07/12/17 Presenting complaint: Right-sided weakness Interval history: This very pleasant lady admitted with weakness on the right side. Also is got slurring of the speech. That has not come back to the baseline. Still has weakness on the right side. MRI did not show any acute event. No trouble swallowing. Review of systems: Was done for constitutional, cardiovascular, GI, pulmonary. Neurology relevant finding as above On examination: VITAL SIGNS: 98.1, 66, 16, 159/70, 98% room air GENERAL APPEARANCE:. Lying in bed, not in distress. HEENT: Normal external appearance of nose and ear. Oral cavity normal EYES: Pupils equal. Conjunctiva normal. NECK: JVD not raised. Mass not palpable. RESPIRATORY: Respiratory effort normal. Lungs clear to auscultation. CARDIOVASCULAR: First and second sounds normal. No edema. ABDOMEN: Soft. Liver and spleen not palpable. No tenderness. No mass palpable. PSYCHIATRY: Alert and oriented x3. Mood and affect normal. NEUROLOGICAL: Power on the right side 3/5. Sensation maintained. Slight slurring of speech Investigations: LDL-110 MRI brain shows mild diffuse cerebral atrophy and some chronic small vessel ischemic changes with old lacunar infarcts Unremarkable CT angiogram Assessment: -Patient still has neurological deficit on the right side and dysarthria. Compatible with acute stroke in the left middle cerebral artery area on the brainstem. Interestingly is not showing up on the MRI, this could be a lacunar infarct in the brainstem. -Diabetes mellitus type 2 on oral hypoglycemic -GERD -Essential hypertension uncontrolled -Hyperlipidemia Plan: Will increase patient's Norvasc to 10 mg a day. DC hydrochlorothiazide and substitute with chlorthalidone. We'll also DC the IV fluids. We'll order an MRA of the brain and neck. Await further input from PT. 2-D echocardiogram cardiogram pending. Care was discussed at length with the patient and questions were answered
[2017-07-12] MEDS: ACETAMINOPHEN TAB 325 MG TAB PO PRN (21:48)
[2017-07-12] MEDS: ENOXAPARIN 40 MG/0.4 ML SYRINGE SQ SCH (21:51)
[2017-07-12] MEDS: MELATONIN 5 MG TABLET PO SCH (22:26)
--- NOTE | 2017-07-13 05:01 | ECHOF ---
Referral Reason:Thrombus MEASUREMENTS -------- HEIGHT: 157.5 cm WEIGHT: 73.5 kg BP: RVIDd: 2.9 cm (< 3.3) IVSd: 1.3 cm (0.6 - 1.1) LVIDd: 3.8 cm (3.9 - 5.3) LVPWd: 1.3 cm (0.6 - 1.1) IVSs: 1.5 cm LVIDs: 3.2 cm LVPWs: 1.3 cm LA Diam: 2.7 cm (2.7 - 3.8) LAESV Index (A-L): 41.46 ml/m Ao Diam: 2.5 cm (2.0 - 3.7) AV Cusp: 1.0 cm (1.5 - 2.6) LA Diam: 3.5 cm (2.7 - 3.8) MV EXCURSION: 13.883 mm (> 18.000) MV EF SLOPE: 81 mm/s (70 - 150) EPSS: 0.2 cm MV E Wilman: 0.65 m/s MV A Wilman: 0.94 m/s MV E/A Ratio: 0.68 AV maxP.14 mmHg AV meanP.50 mmHg RAP: 5.00 mmHg RVSP: 18.64 mmHg FINDINGS -------- Sinus rhythm with extra systolic beats. This was a technically good study. The left ventricular size is normal. Left ventricular wall thickness is normal. Overall left vent ricular systolic function is normal with, an EF between 55 - 60 %. The right ventricle is normal in size. LA is severely dilated >40 ml/m2 The right atrial size is normal. There is mild aortic valve sclerosis. There is mild aortic stenosis present. Peak/mean gradient a cross the Aortic Valve is 18.14mmHg / 9.50mmHg. Mild mitral annular calcification present. Mild mitral regurgitation is present. Mild tricuspid regurgitation present. There is no evidence of pulmonary hypertension. The right v entricular systolic pressure, as measured by Doppler, is 18.64mmHg. Trace/mild (physiologic) pulmonic regurgitation. The aortic root size is normal. There is no pericardial effusion. CONCLUSIONS -------- 1. The left ventricular size is normal. 2. Left ventricular wall thickness is normal. 3. Overall left ventricular systolic function is normal with, an EF between 55 - 60 %. 4. LA is severely dilated >40 ml/m2 5. There is mild aortic valve sclerosis. 6. There is mild aortic stenosis present. 7. Peak/mean gradient across the Aortic Valve is 18.14mmHg / 9.50mmHg. 8. Mild mitral annular calcification present. 9. Mild mitral regurgitation is present. 10. Mild tricuspid regurgitation present. 11. There is no evidence of pulmonary hypertension. 12. The right ventricular systolic pressure, as measured by Doppler, is 18.64mmHg. 13. Trace/mild (physiologic) pulmonic regurgitation. 14. The aortic root size is normal. 15. There is no pericardial effusion. SHEET METAL FORMER: Janiya Sullivan RDCS
[2017-07-13 06:39] LABS: Glucose,Whole Blood 157 mg/dL (75-99)
[2017-07-13] MEDS: PANTOPRAZOLE 40 MG TABLET PO SCH (07:01)
[2017-07-13] MEDS: INSULIN ASPART 100 UNIT/ML 1 ML 10 ML VIAL SQ SCH ×4 (07:01→22:36)
[2017-07-13] MEDS: amLODIPine 10 MG TAB PO SCH (08:22)
[2017-07-13] MEDS: ATORVASTATIN 80 MG TAB PO SCH (08:22)
[2017-07-13] MEDS: ENOXAPARIN 40 MG/0.4 ML SYRINGE SQ SCH (08:23)
[2017-07-13] MEDS: METOPROLOL SUCCINATE (ER) 25 MG TAB.ER.24H PO SCH (08:23)
[2017-07-13] MEDS: CLOPIDOGREL 75 MG TAB PO SCH (08:23)
[2017-07-13] MEDS: CHLORTHALIDONE 25 MG TAB PO SCH (08:23)
[2017-07-13] MEDS: SODIUM CHLORIDE 0.9% 1,000 ML IV SCH (09:34)
[2017-07-13 09:47] LABS: Basophils % (A) 1 %; Eosinophils # (A) 0.2 k/uL (0-0.7); Eosinophils % (A) 3 %; HCT 39.2 % (34.0-46.0); HGB 12.4 gm/dL (11.4-16.0); Lymphocytes # (A) 1.3 k/uL (1.0-4.8); Lymphocytes % (A) 28 %; MCH 30.4 pg (25.0-35.0); MCHC 31.7 g/dL (31.0-37.0); MCV 95.9 fL (80.0-100.0); Mean Platelet Volume 7.1; Monocytes # (A) 0.2 k/uL (0-1.0); Monocytes % (A) 5 %; Neutrophils # (A) 2.8 k/uL (1.3-7.7); Neutrophils % (A) 60 %; Platelet Count 209 k/uL (150-450); RBC 4.09 m/uL (3.80-5.40); RDW 13.8 % (11.5-15.5); WBC 4.6 k/uL (3.8-10.6)
[2017-07-13 09:58] LABS: Anion Gap 15 mmol/L; Blood Urea Nitrogen 17 mg/dL (7-17); Calcium 9.3 mg/dL (8.4-10.2); Carbon Dioxide 19 mmol/L (22-30); Chloride 103 mmol/L (98-107); Glucose 281 mg/dL (74-99); Magnesium 1.7 mg/dL (1.6-2.3); Potassium 4.4 mmol/L (3.5-5.1); Sodium 137 mmol/L (137-145)
--- NOTE | 2017-07-13 12:01 | MR ---
EXAMINATION TYPE: MR angio head/neck wo con DATE OF EXAM: 07/13/2017 11:43 AM COMPARISON: NONE HISTORY: Right-sided weakness, with fluctuation Three-dimensional [id number] intracranial MRA was performed with multiple intensity projection im ages submitted and source data reviewed at the workstation. The vertebrobasilar system as well as intracranial portions of the internal carotid arteries and thei r major tributaries are patent. Mild luminal narrowing involving the trifurcation region left MCA. I do not see evidence for sizable aneurysm or vascular malformation. IMPRESSION: Mild luminal narrowing involving the trifurcation region left MCA estimated at 50%. EXAMINATION TYPE: MR angio head/neck wo con DATE OF EXAM: 07/13/2017 11:43 AM COMPARISON: NONE HISTORY: Right-sided weakness, with fluctuation Three-dimensional [id number] cervical carotid MRA was performed with multiple intensity projectio n images submitted and source data reviewed at the workstation. Right carotid system: There is mild plaque seen about the common carotid artery. Mild plaque is also seen at the origin and proximal aspect of the right internal carotid artery. Stenosis is estimated at less than 50%. No hemodynamically significant stenosis is appreciated. Right external carotid ar anne marie right vertebral artery are patent. Left carotid system: Mild plaque involving the left common carotid artery. Minimal to mild plaque or igin left ICA. No hemodynamically significant stenosis is appreciated. External carotid artery and the left vertebral artery are patent. IMPRESSION: 1. No hemodynamically significant stenosis is appreciated at this time.
[2017-07-13 12:57] LABS: Glucose,Whole Blood 190 mg/dL (75-99)
--- NOTE | 2017-07-13 15:49 | P.PN ---
Subjective Progress Note Date: 07/13/17 Principal diagnosis: Patient is a pleasant 76-year-old female who is being followed by the neurology service for right-sided weakness. Patient came to [facility] after waking up in the middle the night and noticing right-sided weakness. Patient spoke with her daughter in the morning and daughter had noticed slurred speech. Patient symptoms were improved by the time she reached the hospital. Patient had return of symptoms that night and MRI was obtained. MRI did not show any recent infarct. Right-sided weakness is improving. Speech is normal. Patient denies headache or dysphagia. At the time of my evaluation, patient is resting comfortably in bed and appears to be in no acute distress. 07/13/2017 Patient is a pleasant 76-year-old female who is being followed by the neurology service for right-sided weakness. Patient right-sided weakness has been waxing and waning since admission. Patient right upper extremity is much weaker today than yesterday. She denies headache, changes in vision, or difficulty swallowing. Patient has had 2 CTs of the brain which did not show any acute process. She has had 2 CTAs which did not show any evidence of stenosis or aneurysmal change. Patient had MRI after right-sided weakness started to worsen. MRI of the brain did not show any acute infarct. Patient had MRA of the head and neck which did not show any significant stenosis. At the time of my evaluation, patient is resting comfortably in bed and appears to be in no acute distress. Objective - Vital Signs Vital signs: Vital Signs Temp 96.0 F L 07/13/17 12:00 Pulse 61 07/13/17 12:00 Resp 18 07/13/17 12:00 BP 166/79 07/13/17 12:00 Pulse Ox 97 07/13/17 12:00 Intake & Output 07/12/17 07/13/17 07/13/17 18:59 06:59 18:59 Intake Total 1120 200 Output Total 200 Balance 920 200 Weight 74.1 kg Intake: Intake, IV Titration 400 Amount Sodium Chloride 0.9% 1, 400 000 ml @ 100 mls/hr IV . Q10H PAUL Rx#:[id number] Oral 720 200 Output: Urine 200 Other: Voiding Method Bedside Commode Bedside Commode # Voids 2 - Exam PHYSICAL EXAM: GENERAL APPEARANCE: Patient is a well-developed, female who appears to be in no acute distress. HEENT: Normocephalic, atraumatic, no facial asymmetry is seen. Neck is supple with no masses felt. CARDIOVASCULAR: Regular rate and rhythm. ABDOMEN: Nontender, nondistended. EXTREMITIES: Show no edema or clubbing. NEUROLOGICAL EXAM: Patient is awake, alert, and oriented 3. Speech and language are normal. Strength is full to left upper and lower extremity. Strength is 3/5 in the right upper extremity and 4-/5 in the right lower extremity. Sensory exam is normal to light touch in all 4 extremities. No facial asymmetry is seen on cranial nerve testing. No tremors or seizure-like activity noted. - Labs CBC & Chem 7: 07/13/17 08:44 07/13/17 08:44 Labs: Abnormal Lab Results - Last 24 Hours (Table) 07/12/17 07/12/17 07/13/17 Range/Units 16:42 21:17 06:26 Carbon Dioxide (22-30) mmol/L Glucose (74-99) mg/dL POC Glucose (mg/dL) 224 H 178 H 157 H (75-99) mg/dL 07/13/17 07/13/17 Range/Units 08:44 12:16 Carbon Dioxide 19 L (22-30) mmol/L Glucose 281 H (74-99) mg/dL POC Glucose (mg/dL) 190 H (75-99) mg/dL Assessment and Plan Plan: Impression: 1. TIA/CVA 2. Right hemiparesis 3. Slurred speech, resolved 4. Migraine 5. Hypertension 6. Diabetes mellitus Recommendation: Patient right-sided weakness seems to wax and wane. As mentioned above, CT of the brain, CTA, MRI, MRA have all shown no evidence of acute infarct. Given the fact that right-sided weakness continues, although rare, this may be a cervical cord infarct. I will order an MRI of the cervical spine to evaluate for cervical cord infarct. This will not change treatment plan. Patient will continue to be treated for CVA. Continue Plavix 75 mg by mouth daily and statin. I recommend physical therapy to reevaluate for inpatient rehab. Patient does live alone and I recommend she go for short stay prior to going home. EEG was done and results are pending. Her serum homocysteine level is normal. Barring any abnormalities in the EEG, I will continue to follow with you on an as-needed basis. Feel free to call with any questions or concerns. I performed an examination of the patient and discussed the management with the PYROMETALLURGICAL ENGINEER. I have reviewed the PYROMETALLURGICAL ENGINEER notes and agree with the findings and plan of care.
[2017-07-13 17:20] LABS: Glucose,Whole Blood 144 mg/dL (75-99)
--- NOTE | 2017-07-13 18:07 | EEG ---
ELECTROENCEPHALOGRAM REPORT DATE OF SERVICE: 07/13/2017 REASON FOR TESTING: Transient ischemic attack. DESCRIPTION OF THE PROCEDURE: This EEG was performed using a 21-channel digital electroencephalograph, following international 10-20 system. DESCRIPTION OF THE RECORDING: From the beginning of the tracing, and with patient's eyes closed, the background rhythm was mostly consisting of 10 Hz alpha frequency in the posterior occipital leads. No obvious asymmetry is seen. Photic stimulation was performed with a good driving response seen. No pathological waves were elicited. Hyperventilation was not performed. Occasional movement and muscle artifacts are seen. The patient remains awake throughout the tracing. No epileptiform discharges were seen. His EKG lead showed an irregularly irregular rhythm with a normal rate. INTERPRETATION: This awake EEG can be considered within normal limits, except his EKG lead showed an irregularly irregular rhythm with a normal rate. No epileptiform discharges were seen. The absence of epileptiform discharges does not rule out the diagnosis of epilepsy; therefore clinical correlation is recommended. ELMER / CAMILLE: [id number] /
--- NOTE | 2017-07-13 19:07 | P.PN ---
Progress Note - Text Progress Note Date: 07/13/17 Presenting complaint: Right-sided weakness Interval history: This very pleasant lady admitted with weakness on the right side. She had some blurring of the speech which according to her has now resolved. Daughter the bedside. Patient neurological workup 1 has been negative to now. Patient's right-sided weakness is likely worse today. Patient is quite frustrated about the same. I ordered a MRA of the brain and the neck that came back to be negative again. Review of systems: Was done for constitutional, cardiovascular, GI, pulmonary. Neurology relevant finding as above On examination: VITAL SIGNS: Temperature 90.6, pulse 97 respiration 18 and blood pressure 130/ 60 pulse 77% room air GENERAL APPEARANCE:. Lying in bed, comfortable. HEENT: Normal external appearance of nose and ear. Oral cavity normal EYES: Pupils equal. Conjunctiva normal. NECK: JVD not raised. Mass not palpable. RESPIRATORY: Respiratory effort normal. Lungs clear to auscultation. CARDIOVASCULAR: First and second sounds normal. No edema. ABDOMEN: Soft. Liver and spleen not palpable. No tenderness. No mass palpable. PSYCHIATRY: Alert and oriented x3. Mood and affect normal. NEUROLOGICAL: Power on the right side 4 / 5 in the arm and 3 / 5 in the leg. Sensation maintained. No slurring of speech Investigations: MRA of the brain and neck were negative Assessment: -Patient still has neurological deficit on the right side/acute stroke which has gotten worse. Speech is not affected. All the neurological workup has been negative.. Been warned of the cervical spine. Neurology did order a MRA of the spine. -Diabetes mellitus type 2 on oral hypoglycemic -GERD -Essential hypertension uncontrolled -Hyperlipidemia Plan: Had a lengthy talk with the patient and the patient out of the bedside. They' re concerned about the new weakness. We will await the findings of the findings cervical spine MRI. They 1 to transfer to [facility] tomorrow , if nothing else is found. I agreed for that. I related the day discussed Dr. Meléndez, and he agrees with the same. Continue current medication treatment plan. I'll plan tomorrow for transfer accordingly. Total time spent today was about 40 minutes with about 25 minutes of discussion
[2017-07-13] MEDS: MAGNESIUM OXIDE 400 MG TAB PO SCH (20:48)
[2017-07-13] MEDS: FOLIC ACID 1 MG TAB PO SCH (20:48)
[2017-07-13] MEDS: LOSARTAN 50 MG TAB PO SCH (20:48)
[2017-07-13] MEDS: VIT A,C & E-LUTEIN-MINERALS 1 EACH TAB PO SCH (20:49)
[2017-07-13] MEDS: MELATONIN 5 MG TABLET PO SCH (20:49)
[2017-07-13] MEDS: METHOTREXATE SODIUM 2.5 MG TAB PO SCH (20:49)
[2017-07-13] MEDS: NAPROXEN 250 MG TAB PO SCH (20:49)
[2017-07-13 21:41] LABS: Glucose,Whole Blood 194 mg/dL (75-99)
[2017-07-13] MEDS: ACETAMINOPHEN TAB 325 MG TAB PO PRN (22:35)
[2017-07-14 06:09] LABS: Glucose,Whole Blood 158 mg/dL (75-99)
[2017-07-14] MEDS: PANTOPRAZOLE 40 MG TABLET PO SCH ×2 (06:25→06:35)
[2017-07-14] MEDS: INSULIN ASPART 100 UNIT/ML 1 ML 10 ML VIAL SQ SCH ×4 (06:35→21:40)
[2017-07-14] MEDS: ENOXAPARIN 40 MG/0.4 ML SYRINGE SQ SCH (08:01)
[2017-07-14] MEDS: CLOPIDOGREL 75 MG TAB PO SCH (08:01)
[2017-07-14] MEDS: amLODIPine 10 MG TAB PO SCH (08:02)
[2017-07-14] MEDS: METOPROLOL SUCCINATE (ER) 25 MG TAB.ER.24H PO SCH (08:02)
[2017-07-14] MEDS: CHLORTHALIDONE 25 MG TAB PO SCH (08:02)
[2017-07-14] MEDS: ATORVASTATIN 80 MG TAB PO SCH (08:02)
[2017-07-14] MEDS: FOLIC ACID 1 MG TAB PO SCH (08:03)
--- NOTE | 2017-07-14 10:17 | MR ---
EXAMINATION TYPE: MR cervical spine wo con DATE OF EXAM: 07/14/2017 COMPARISON: NONE HISTORY: CVA , weakness in extremities, right side weakness TECHNIQUE: Multiplanar, multisequence images of the cervical spine were acquired. C2-C3: No evidence for degenerative disc disease. No disc bulge/herniation or protrusion. No Canal stenosis. Foramina are patent bilaterally. C3-C4: Broad-based disc bulge has moderate anterior thecal sac compression. This is in close approxim ation with the spinal cord. Obvious cord deformity is not identified. No spinal canal stenosis or heide ral foraminal stenosis present. C4-C5: There is central focal bulge with moderate thecal sac compression. Cord contact is present. No cord deformity is identified. No spinal canal stenosis present. There is loss of disc height and dis c desiccation. C5-C6: Mild disc bulge is present with anterior thecal sac contact. No cord contact is evident. No sp inal canal stenosis or neural foraminal stenosis is present. C6-C7: Minimal broad-based disc bulge may be present with anterior thecal sac contact. No AP spinal c anal stenosis present. No cord contact is evident. Neural foramen are patent. C7-T1: No evidence for degenerative disc disease. No disc bulge/herniation or protrusion. No Canal stenosis. Foramina are patent bilaterally. There is a kyphosis at the C4 level. There is loss of disc height C4-3-4, C4-5, C5-6. Disc desiccatio n is present to these levels. IMPRESSION: 1. Disc bulging C3-4 C4-5 with moderate anterior thecal sac compression. These are in close approxima tion with the spinal cord without deformity. 2. Spinal kyphosis centered at C4.
[2017-07-14 12:06] LABS: Glucose,Whole Blood 198 mg/dL (75-99)
--- NOTE | 2017-07-14 13:00 | P.CNOR ---
History of Present Illness - [facility] Consult date: 07/14/17 Requesting physician: Nico Mendieta Consult reason: other (Acute onset right upper extremity and right lower extremity weakness) History of present illness: Patient is a very pleasant 76-year-old female who is seen and examined at the bedside for evaluation after urgent consultation was placed by Dr. Mendieta. Through this past , 07/09/2017, patient had been ambulating and performing activities of daily living without difficulty. On Thursday the patient was planning to go to the [facility] with her daughter. Her daughter felt the patient's speech was abnormal and subsequently she was brought to the emergency department for further evaluation. At that time she started to experience acute onset significant right-sided weakness with her right upper extremity and right lower extremity. These were new symptoms for her. She was admitted for further evaluation and treatment. Patient states Thursday her symptoms had dramatically improved and she was able to lift her right upper extremity and right lower extremity without significant difficulty. At approximately 5 PM on Thursday her symptoms returned and since that time she has been unable to lift her right upper extremity or right lower extremity. She has difficulty with range of motion the entire right upper extremity. For her right lower extremity, she is able to perform some knee abduction and abduction but is unable to perform any other active range of motion. She does have full sensation over the right upper and lower extremities without difficulty. She denies any left upper extremity or left lower extremity radiculopathy or weakness. She states she did have a headache at presentation that was centrally located on her forehead that radiated to the left. She denies any specific injuries. She has been seen by medicine as well as neurology during this admission. She is undergone numerous testing without significant findings. A cervical MRI was performed and we were consulted following these results. Per note written by medicine, if the cause of her symptoms is unable to be found she'll most likely be transferred to [facility] or another tertiary facility. Patient's daughter is with her at the bedside. 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, diverticulitis History of Any Multi-Drug Resistant Organisms: None Reported Past Surgical History: Cholecystectomy, Joint Replacement, Tonsillectomy Additional Past Surgical History / Comment(s): breast biopsy rt breast, lt knee replacement Past Anesthesia/Blood Transfusion Reactions: Motion Sickness Past Psychological History: No Psychological Hx Reported Smoking Status: Never smoker Past Alcohol Use History: Rare Additional Past Alcohol Use History / Comment(s): glass of wine once in awhile Past Drug Use History: None Reported - Past Family History Mother Family Medical History: No Reported History Medications and Allergies Home Medications Medication Instructions Recorded Confirmed Type Atenolol [Tenormin] 25 mg PO QAM 03/02/14 07/10/17 History Hydrochlorothiazide 25 mg PO QAM 03/02/14 07/10/17 History Multivitamin/Iron/Folic Acid 1 tab PO BID 03/02/14 07/10/17 History [Centrum Complete Multivit Tab] Naproxen 500 mg PO HS 03/02/14 07/10/17 History Omeprazole [PriLOSEC] 20 mg PO QAM 03/02/14 07/10/17 History glipiZIDE [Glucotrol] 5 mg PO HS 03/02/14 07/10/17 History metFORMIN HCL 1,000 mg PO BID 03/02/14 07/10/17 History Aspirin 81 mg PO HS 11/14/14 07/10/17 History Calcium Carbonate 500 mg PO QAM 07/10/17 07/10/17 History Fiberwell 5g 5 g PO QAM 07/10/17 07/10/17 History Folic Acid 1 mg PO QAM 07/10/17 07/10/17 History Garcinia Cambogia 1 tab PO QAM 07/10/17 07/10/17 History L.acidoph,Paracasei, B.lactis 1 cap PO QAM 07/10/17 07/10/17 History [Probiotic] Magnesium 200 mg PO HS 07/10/17 07/10/17 History Methotrexate Sodium [Methotrexate] 2.5 mg PO HS 07/10/17 07/10/17 History Metoprolol Succinate (ER) [Toprol 25 mg PO QAM 07/10/17 07/10/17 History Xl] Pravastatin Sodium [Pravachol] 40 mg PO HS 07/10/17 07/10/17 History Turmeric Root Extract [Turmeric] 500 mg PO QAM 07/10/17 07/10/17 History Vits A,C,E/Lutein/Minerals 1 tab PO HS 07/10/17 07/10/17 History [Ocuvite with Lutein Tablet] amLODIPine BES/OLMESARTAN MED 1 tab PO HS 07/10/17 07/10/17 History [amLODIPine BES/OLMESARTAN MED 5-40 mg] Allergies Allergy/AdvReac Type Severity Reaction Status Date / Time Sulfa (Sulfonamide Allergy tongue Verified 07/10/17 14:12 Antibiotics) swelling Physical Examination Physical exam: Patient is awake, alert, and oriented 3; patient is able to communicate clearly and does not have obvious sign of slurred speech Vital signs stable Good chest excursion with deep inspiration and expiration Abdomen soft nontender Full range of motion of the cervical spine with adequate flexion, extension, and bilateral rotation Urology Surgeon strength, thumb strength, interosseous strength, biceps strength, triceps strength, and shoulder strength positive sustained on the left Active full range of motion of the left lower extremity without difficulty Left upper extremity and left lower extremity strength 5/5 Patient is unable to perform any active range of motion of the entire right upper extremity including biceps, triceps, deltoids, supervisor porcelain department, thumb extension, and interosseous No pain with passive range of motion of the right upper extremity or right lower extremity Neurovascularly intact bilateral upper extremities and lower extremities Able to perform knee abduction and abduction but slowly for the right lower extremity Significantly reduced strength of the right lower extremity; patient is unable to perform knee extension, hip flexion, dorsiflexion, and plantar flexion for the right lower extremity Biceps reflex 0+ bilaterally and Brachioradialis reflexes 0+ bilaterally No upper extremity hyperreflexia bilaterally for the upper extremities and lower extremities Hoffmans sign negative upper extremity bilaterally No pain with log rolling of the hips bilaterally No signs or symptoms of DVT; no calf pain Results Pertinent studies: MRI of the cervical spine taken on 07/14/2017: C3-4 degenerative disc disease and broad-based disc bulge with moderate thecal sac compression with no obvious cord deformity or evidence of spinal canal stenosis or neural foraminal stenosis ; C4-5 degenerative disc disease, disc desiccation, and central disc bulge with moderate thecal sac compression with right neural foraminal narrowing without evidence of spinal canal stenosis; kyphosis at C4; C6-7 minimal broad-based disc bulge MRI angiogram of the head and neck without contrast taken on 07/13/2017: No hemodynamically significant stenosis appreciated at this time MRI of the brain taken on 07/11/2017: No evidence of recent infarct; mild diffuse cerebral atrophy and moderate to severe chronic small vessel ischemic change with old lacunar infarct all redemonstrated CT of the brain taken on 07/11/2017: No acute intracranial abnormality; small lacunar and the right external capsule; mild atrophic change CT of the brain taken on 07/10/2017: Chronic small vessel ischemia; age-related atrophy CT angiogram of the head and neck: Age-related changes - Labs Labs: Abnormal Lab Results - Last 24 Hours (Table) 07/13/17 07/13/17 07/13/17 Range/Units 12:16 16:59 21:39 POC Glucose (mg/dL) 190 H 144 H 194 H (75-99) mg/dL 07/14/17 07/14/17 Range/Units 06:08 11:50 POC Glucose (mg/dL) 158 H 198 H (75-99) mg/dL H & H 07/10/17 07/13/17 Range/Units 14:00 08:44 Hgb 12.7 12.4 (11.4-16.0) gm/dL Hct 39.3 39.2 (34.0-46.0) % Coagulation 07/10/17 Range/Units 14:00 INR 1.0 (<1.2) Result Diagrams: 07/13/17 08:44 07/13/17 08:44 Assessment and Plan Assessment: Assessment: Acute onset significant right upper extremity and right lower extremity weakness without injury Cervical degenerative disc disease C4-5 disc desiccation, degenerative disc disease, and central disc bulge with right neural foraminal narrowing (1) Acute right-sided weakness Current Visit: Yes Status: Acute Code(s): M62.89 - OTHER SPECIFIED DISORDERS OF MUSCLE SNOMED Code(s): 817512844 (2) Degenerative disc disease, cervical Current Visit: Yes Status: Acute Code(s): M50.30 - OTHER CERVICAL DISC DEGENERATION, UNSP CERVICAL REGION SNOMED Code(s): 36024990 Plan: Plan: 1. Imaging has been reviewed with Dr. Aditya Cuello. After physical examination of the patient, discussion with the patient and her family, and review of imaging, we not currently planned for acute surgical intervention in regards to her cervical spine. Patient does have some degenerative changes most significant at C3-4 and C4-5 but these levels do not correlate well with her significant acute onset of significant and debilitating right upper extremity and lower extremity weakness. She is unable to move her right upper extremity through any active range of motion. The only right lower extremity active range of motion she is able to perform is knee abduction and abduction. The symptoms are acute in nature which started this past Thursday for no known reason. Her symptoms had improved Thursday she was able to gain range of motion of the right upper extremity and right lower extremity. By Thursday her symptoms had significantly worsened and since that time she has not had any active range of motion of the right upper extremity and has significantly limited range of motion of the right lower extremity. She is neurovascularly intact for the right upper extremity and right lower extremity. She is not hyperreflexic of the bilateral upper extremities. She has negative Rafael sign bilaterally. She is not having significant findings in regards to her left upper extremity or left lower extremity. Following these documentation by medicine, they're currently planning for transfer to [facility] or another tertiary facility. Dr. Cuello and myself agreed this is a good plan of care as her symptoms do not correlate well from a cervical standpoint. At this time, we will not plan have the patient follow up in the outpatient setting unless she would have an exacerbation of her symptoms in regards to her cervical spine. At that time, she may call the office to set up follow-up appointment. 2. Medicine and neurology to continue following the patient 3. From an orthopedic spine standpoint, patient is clear for transfer to a tertiary facility 4. Patient a follow-up with Ady Durham PA-C or Dr. Aditya Cuello at [facility] on as-needed basis following discharge 5. Patient has been discussed in detail with Dr. Aditya Cuello and he agrees with this plan Time with Patient: Greater than 30
[2017-07-14] MEDS: ACETAMINOPHEN TAB 325 MG TAB PO PRN (14:54)
[2017-07-14 17:11] LABS: Glucose,Whole Blood 199 mg/dL (75-99)
[2017-07-14 21:23] LABS: Glucose,Whole Blood 174 mg/dL (75-99)
[2017-07-14] MEDS: NAPROXEN 250 MG TAB PO SCH (21:39)
[2017-07-14] MEDS: METHOTREXATE SODIUM 2.5 MG TAB PO SCH (21:40)
[2017-07-14] MEDS: LOSARTAN 50 MG TAB PO SCH (21:40)
[2017-07-14] MEDS: VIT A,C & E-LUTEIN-MINERALS 1 EACH TAB PO SCH (21:40)
[2017-07-14] MEDS: MELATONIN 5 MG TABLET PO SCH (21:40)
[2017-07-14] MEDS: MAGNESIUM OXIDE 400 MG TAB PO SCH (21:40)
[2017-07-14] MEDS: amLODIPine 5 MG TAB PO SCH (23:01)
[2017-07-15 05:35] LABS: Glucose,Whole Blood 164 mg/dL (75-99)
[2017-07-15] MEDS: INSULIN ASPART 100 UNIT/ML 1 ML 10 ML VIAL SQ SCH ×2 (06:53→12:18)
[2017-07-15] MEDS: ENOXAPARIN 40 MG/0.4 ML SYRINGE SQ SCH (09:18)
[2017-07-15] MEDS: CHLORTHALIDONE 25 MG TAB PO SCH (09:18)
[2017-07-15] MEDS: METOPROLOL SUCCINATE (ER) 25 MG TAB.ER.24H PO SCH (09:19)
[2017-07-15] MEDS: amLODIPine 10 MG TAB PO SCH (09:19)
[2017-07-15] MEDS: ATORVASTATIN 80 MG TAB PO SCH (09:20)
[2017-07-15] MEDS: CLOPIDOGREL 75 MG TAB PO SCH (09:20)
[2017-07-15 10:36] VITALS: RESP 18
[2017-07-15 11:25] LABS: Glucose,Whole Blood 200 mg/dL (75-99)
[2017-07-15] MEDS: FOLIC ACID 1 MG TAB PO SCH (11:37)
--- NOTE | 2017-07-15 13:18 | P.PN ---
Progress Note - Text Progress Note Date: 07/14/17 Presenting complaint: Right-sided weakness Interval history: This very pleasant lady admitted with weakness on the right side. She had some blurring of the speech which according to her has now resolved. Daughter the bedside. Patient neurological workup 1 has been negative to now. Patient's right-sided weakness is likely worse today. Patient is quite frustrated about the same. I ordered a MRA of the brain and the neck that came back to be negative again. Today-weakness in the right side persist. Some right leg weakness.. No change in speech. Review of systems: Was done for constitutional, cardiovascular, GI, pulmonary. Neurology relevant finding as above On examination: VITAL SIGNS: 98.1, 58, 18, 161/73, 92% room air GENERAL APPEARANCE:. Lying in bed, comfortable. HEENT: Normal external appearance of nose and ear. Oral cavity normal EYES: Pupils equal. Conjunctiva normal. NECK: JVD not raised. Mass not palpable. RESPIRATORY: Respiratory effort normal. Lungs clear to auscultation. CARDIOVASCULAR: First and second sounds normal. No edema. ABDOMEN: Soft. Liver and spleen not palpable. No tenderness. No mass palpable. PSYCHIATRY: Alert and oriented x3. Mood and affect normal. NEUROLOGICAL: Weak in the right arm and right leg Investigations: MRA of the brain and neck were negative Assessment: -Acute stroke, possibly in the left MCA territory on the brainstem, likely ischemic in nature, and a right-handed patient.. -Diabetes mellitus type 2 on oral hypoglycemic -GERD -Essential hypertension -Hyperlipidemia Plan: Earlier in the day and spoken to the neuro team at [facility]. They would be happy to accept the patient. Subsequently Dr. Meléndez from neurology was called. It was his opinion patient will not benefit further from transfer and what is she really needs his rehab. I came back at night discussed with the patient and informed her of the same. Had also spoken to the patient on in the day. Spoke at length to the social/family preservation caseworker. Total time spent today was about 45 minutes with over 30 minutes of discussion
[2017-07-15 13:30] VITALS: BP 133/78; PULSE 62; TEMP 97.2
--- NOTE | 2017-07-15 13:36 | P.DS ---
Providers Date of admission: 07/10/17 16:14 Expected date of discharge: 07/15/17 Attending physician: Nico Mendieta Consults: 07/10/17 16:14 Consult Physician Urgent Consulting Provider: Devin Meléndez Consult Reason/Comments: tia Do you want consulting provider notified?: Yes 07/14/17 11:04 Consult Physician Urgent Consulting Provider: Jevon Cuello Consult Reason/Comments: CERVICAL SPINE MRI FINDINGS Do you want consulting provider notified?: Yes Primary care physician: [facility] Hospital Course: Final diagnosis: -Acute stroke, possibly in the brainstem, likely ischemic in nature, and a right-handed patient.. -Diabetes mellitus type 2 on oral hypoglycemic -GERD -Essential hypertension -Hyperlipidemia -C3-C4, C4-C5 herniated disc Hospital course: Patient presented with right arm and right leg weakness. It initially improved then got worse again. Weakness remains. No change in her speech and swallowing. Patient had extensive workup done including CT edge of the brain, computed tomography scan of the brain, MRI of the brain, neck MRA, EEG. BACK to be negative. Cervical spine MRI did show C3-C4, C4-C5 herniated disc with some moderate anterior thecal sac compression. Patient was seen by Dr. Yee from orthopedic spine this was not felt to be causing patient's neurological symptoms. Patient also seen by Dr. Meléndez from neurology. And THE patient to be discharged to get inpatient rehab. Care was discussed with the patient her daughter and brother today patient. Questions were answered. Also discussed with Nino social contact worker. Discussion discharge planning more than 35 minutes Physical examination: Lungs are clear, cardiovascular first seconds are normal, neurological-powered right arm 2-3/5, right leg 3-4/5 Disposition: [facility] care in at [place] Plan - Discharge Summary New Discharge Prescriptions: New Atorvastatin [Lipitor] 80 mg PO DAILY tab Chlorthalidone [Hygroton] 25 mg PO DAILY tab Clopidogrel [Plavix] 75 mg PO DAILY tab Enoxaparin [Lovenox] 40 mg SQ DAILY syringe Melatonin 5 mg PO HS tablet Continue Naproxen 500 mg PO HS metFORMIN HCL 1,000 mg PO BID glipiZIDE [Glucotrol] 5 mg PO HS Omeprazole [PriLOSEC] 20 mg PO QAM Multivitamin/Iron/Folic Acid [Centrum Complete Multivit Tab] 1 tab PO BID amLODIPine BES/OLMESARTAN MED [amLODIPine BES/OLMESARTAN MED 5-40 mg] 1 tab PO HS Vits A,C,E/Lutein/Minerals [Ocuvite with Lutein Tablet] 1 tab PO HS Calcium Carbonate 500 mg PO QAM LManaacidoph,Paracasei, B.lactis [Probiotic] 1 cap PO QAM Metoprolol Succinate (ER) [Toprol XL] 25 mg PO QAM Methotrexate Sodium [Methotrexate] 2.5 mg PO HS Folic Acid 1 mg PO QAM Discontinued Hydrochlorothiazide 25 mg PO QAM Aspirin 81 mg PO HS Pravastatin Sodium [Pravachol] 40 mg PO HS No Action Atenolol [Tenormin] 25 mg PO QAM Fiberwell 5g 5 g PO QAM Turmeric Root Extract [Turmeric] 500 mg PO QAM Magnesium 200 mg PO HS Garcinia Cambogia 1 tab PO QAM Discharge Medication List Atenolol [Tenormin] 25 mg PO QAM 03/02/14 [History] Multivitamin/Iron/Folic Acid [Centrum Complete Multivit Tab] 1 tab PO BID [History] Naproxen 500 mg PO HS 03/02/14 [History] Omeprazole [PriLOSEC] 20 mg PO QAM 03/02/14 [History] glipiZIDE [Glucotrol] 5 mg PO HS 03/02/14 [History] metFORMIN HCL 1,000 mg PO BID 03/02/14 [History] Calcium Carbonate 500 mg PO QAM 07/10/17 [History] Fiberwell 5g 5 g PO QAM 07/10/17 [History] Folic Acid 1 mg PO QAM 07/10/17 [History] Garcinia Cambogia 1 tab PO QAM 07/10/17 [History] L.acidoph,Paracasei, B.lactis [Probiotic] 1 cap PO QAM 07/10/17 [History] Magnesium 200 mg PO HS 07/10/17 [History] Methotrexate Sodium [Methotrexate] 2.5 mg PO HS 07/10/17 [History] Metoprolol Succinate (ER) [Toprol XL] 25 mg PO QAM 07/10/17 [History] Turmeric Root Extract [Turmeric] 500 mg PO QAM 07/10/17 [History] Vits A,C,E/Lutein/Minerals [Ocuvite with Lutein Tablet] 1 tab PO HS 07/10/17 [ History] amLODIPine BES/OLMESARTAN MED [amLODIPine BES/OLMESARTAN MED 5-40 mg] 1 tab PO HS 07/10/17 [History] Atorvastatin [Lipitor] 80 mg PO DAILY tab 07/14/17 [Rx] Chlorthalidone [Hygroton] 25 mg PO DAILY tab 07/14/17 [Rx] Clopidogrel [Plavix] 75 mg PO DAILY tab 07/14/17 [Rx] Enoxaparin [Lovenox] 40 mg SQ DAILY syringe 07/14/17 [Rx] Melatonin 5 mg PO HS tablet 07/14/17 [Rx] Follow up Appointment(s)/Referral(s): Ady Durham PAC [PHYSICIAN BREAD BAKER] - As Needed (Patient may follow-up with Ady Durham PA-C or Dr. Aditya Cuello at [facility] on an as-needed basis following discharge. ) Kostas Kim MD [Primary Care Provider] - 1 Week Devin Meléndez MD [STAFF PHYSICIAN] - 2 Weeks
== END 2017-07-15 15:52 | DRG 65 ==
LOC: EC 12:44 → 6SEL 16:14
PROVIDERS: ADMIT Hospitalist; ATTEND Hospitalist
DX: I63.512 Cerebral infarction due to unspecified occlusion or stenosis of left middle cerebral artery (principal); G81.91 Hemiplegia, unspecified affecting right dominant side; E11.9 Type 2 diabetes mellitus without complications; I77.6 Arteritis, unspecified; R26.2 Difficulty in walking, not elsewhere classified; G43.909 Migraine, unspecified, not intractable, without status migrainosus; I10 Essential (primary) hypertension; K21.9 Gastro-esophageal reflux disease without esophagitis; E78.5 Hyperlipidemia, unspecified; L98.9 Disorder of the skin and subcutaneous tissue, unspecified; M50.321 Other cervical disc degeneration at C4-C5 level; I45.10 Unspecified right bundle-branch block; R00.1 Bradycardia, unspecified; R47.1 Dysarthria and anarthria; Z86.73 Personal history of transient ischemic attack (TIA), and cerebral infarction without residual deficits; Z90.89 Acquired absence of other organs; Z96.652 Presence of left artificial knee joint; Z79.899 Other long term (current) drug therapy; Z79.82 Long term (current) use of aspirin; Z79.1 Long term (current) use of non-steroidal anti-inflammatories (NSAID); Z79.84 Long term (current) use of oral hypoglycemic drugs; Z88.2 Allergy status to sulfonamides; Z87.19 Personal history of other diseases of the digestive system
CPT/HCPCS: 36415; 70450; 70496; 70498; 70544; 70547; 70551; 71046; 72141; 80048; 80053; 80061; 82550; 82553; 83090; 83735; 84484; 85025; 85610; 85730; 93005; 93306; 95819; 96360; 96361; 99285